=== PATIENT | female | born 1935 | race Caucasian/White ===

== ENCOUNTER 2022-01-17 20:39 | Emergency (ER) | payer MEDICARE | END 2022-01-17 21:16 | disposition home or self-care (01) | LOC: MADERS 20:39 | DX: S01.112A Laceration without foreign body of left eyelid and periocular area, initial encounter (principal); I10 Essential (primary) hypertension; E78.5 Hyperlipidemia, unspecified; J44.9 Chronic obstructive pulmonary disease, unspecified; M19.90 Unspecified osteoarthritis, unspecified site; G47.30 Sleep apnea, unspecified; W18.00XA Striking against unspecified object with subsequent fall, initial encounter; Z79.899 Other long term (current) drug therapy | CPT/HCPCS: 12011 ==

== ENCOUNTER 2023-08-11 07:19 | Emergency (ER) | payer MEDICARE ==
[2023-08-11 07:43] LABS: #Basophils 0.2 thou/uL (0.0-0.2); #Eosinphils 0.3 thou/uL (0.0-0.7); #Lymphocytes 2.3 thou/uL (1.20-3.40); #Monocytes 0.6 thou/uL (0.11-0.59); #Neutrophils 4.6 thou/uL (1.40-6.50); %Basophils 1.9 % (0.0-1.0); %Eosinophils 3.2 % (0.0-10.0); %Lymphocytes 29.2 % (21.0-51.0); %Monocytes 7.8 % (0.0-10.0); %Neutrophils 57.9 % (42.0-75.0); Hematocrit 45.7 % (36.0-47.0); Mean Corpuscular HGB CONC 32.8 g/dL (32.0-36.0); Mean Corpuscular Hemoglobin 29.9 pg (27.0-31.0); Mean Corpuscular Volume 91.1 fl (78.0-98.0); Mean Platelet Volume 6.9 fL (7.4-10.4); Platelet Count 260 10x3/uL (130-400); RBC Distribution Width 12.5 % (11.5-14.5); Red Blood Cell (RBC) Count 5.02 mill/uL (4.20-5.40)
[2023-08-11 07:44] LABS: INR-International Normal Ratio 0.9; PTT 25.3 sec (22.9-36.1); Prothrombin Time 11.9 sec (12.0-14.7)
[2023-08-11 07:55] LABS: ALT (SGPT) 20 U/L (8-55); AST (SGOT) 23 U/L (5-34); Albumin 4.4 g/dL (3.4-4.8); Alkaline Phosphatase 43 U/L (40-110); Anion Gap 16 mmol/L (10-20); BUN (Urea Nitrogen) 21 mg/dL (9.8-20.1); Bilirubin, Total 0.6 mg/dL (0.2-1.2); CK (CPK) 20 U/L (29-168); Calc. Creatinine Clearance 0 mL/min (70-130); Calcium 9.7 mg/dL (7.8-10.44); Carbon Dioxide 22 mmol/L (23-31); Chloride 106 mmol/L (98-107); Estimated GFR 67; Globulin 3.4 g/dL (2.4-3.5); Glucose 106 mg/dL (83-110); Potassium 4.2 mmol/L (3.5-5.1); Protein, Total 7.8 g/dL (5.8-8.1); Sodium 140 mmol/L (136-145)
[2023-08-11] MEDS ORDERED: Ondansetron PF 4 MG/2 ML Vial ONE (07:56)
[2023-08-11 08:03] LABS: Troponin I 0.019 ng/mL (< 0.028)
[2023-08-11 08:30] LABS: Bilirubin Negative (Negative); Blood, Urine Negative (Negative); Glucose, Urine (Dipstick) Negative (Negative); Ketone, Urine Negative (Negative); Leukocyte Negative (Negative); Nitrite Negative (Negative); Protein, Urine (Dipstick) Negative (Neg-Trace); Specific Gravity, Urine 1.015 (1.005-1.030); Urobilinogen 0.2 mg/dL (Less than 2); pH, Urine 8.5 (5.0-9.0)
[2023-08-11 08:32] LABS: Clarity Hazy (Clear)
[2023-08-11 08:40] LABS: CAUTI Indications for Culture Alt mental st,lethar; RBC/HPF 0-3 HPF (0-3); Squamous Epithelial 0-3 HPF (0-3); WBC/HPF 0-3 HPF (0-3)
[2023-08-11 08:41] LABS: Bacteria/HPF Rare-Few HPF (None Seen); Mucous/LPF None Seen LPF (<2+)
[2023-08-11 08:42] LABS: Urine Culture Reflex No No
[2023-08-11] MEDS ORDERED: Iopamidol 370 76% 100 ML VIAL ONE (09:00)
[2023-08-11] MEDS ORDERED: Aspirin 325 MG TAB ONE (09:47)
[2023-08-11] MEDS ORDERED: Amlodipine 5 MG TAB ONE (10:08)
[2023-08-11] MEDS ORDERED: Losartan 25 MG TAB ONE (11:57)
[2023-08-11] MEDS ORDERED: Ipratropium/Albuterol 3 ML NEB ONE (12:31)
[2023-08-11] MEDS ORDERED: traMADol HCl 50 MG TAB ONE (14:41)
== END 2023-08-11 17:19 | disposition short-term general hospital (02) ==
LOC: MADERS 07:19
DX: I63.9 Cerebral infarction, unspecified (principal); R47.01 Aphasia; I69.322 Dysarthria following cerebral infarction; I10 Essential (primary) hypertension; R29.704 NIHSS score 4; E78.5 Hyperlipidemia, unspecified; J44.9 Chronic obstructive pulmonary disease, unspecified; Z79.899 Other long term (current) drug therapy; Z79.82 Long term (current) use of aspirin
CPT/HCPCS: 0042T; 70450; 71045; 80053; 81001; 82550; 84484; 85025; 85610; 85730; 93005; 96374; J2405; J7620; Q9967

== ENCOUNTER 2023-08-20 11:16 | Emergency (ER) | payer MEDICARE ==
[2023-08-20] MEDS ORDERED: Bacitracin 1 PK ONE (12:54)
[2023-08-20] MEDS ORDERED: HYDROcodone/Acetaminophen 5/325 mg Tablet ONE (12:54)
[2023-08-20] MEDS ORDERED: Boostrix 0.5 ML (Tdap) VIAL (>/=7 yrs of age) ONE (13:21)
== END 2023-08-20 13:34 | disposition home or self-care (01) ==
LOC: MADERS 11:16
DX: S22.31XA Fracture of one rib, right side, initial encounter for closed fracture (principal); S41.111A Laceration without foreign body of right upper arm, initial encounter; S80.01XA Contusion of right knee, initial encounter; I10 Essential (primary) hypertension; E78.5 Hyperlipidemia, unspecified; J44.9 Chronic obstructive pulmonary disease, unspecified; W18.30XA Fall on same level, unspecified, initial encounter; Z23 Encounter for immunization; Z86.73 Personal history of transient ischemic attack (TIA), and cerebral infarction without residual deficits; Z79.82 Long term (current) use of aspirin; Z79.899 Other long term (current) drug therapy
CPT/HCPCS: 90471; 90715

== ENCOUNTER 2023-10-09 12:47 | Emergency (ER) | payer MEDICARE ==
[~2023-10-09 12:47] MED LIST: Iopamidol 370 76% 100 ML VIAL ONE; Sodium Chloride 0.9% 100 ML BAG ONE
[2023-10-09] MEDS ORDERED: Ipratropium/Albuterol 3 ML NEB ONE (13:21)
[2023-10-09] MEDS ORDERED: Furosemide 20 MG (2 mL) VIAL ONE (13:21)
[2023-10-09] MEDS ORDERED: Benzonatate 100 MG CAP ONE (13:21)
[2023-10-09] MEDS ORDERED: LevoFLOXacin 500 MG TAB ONE (13:22)
[2023-10-09] MEDS ORDERED: Furosemide 40 MG (4 mL) VIAL ONE (13:22)
[2023-10-09] MEDS ORDERED: methylPREDNISolone Sod Succ/PF 125 MG/2 ML VIAL ONE (13:22)
[2023-10-09] MEDS ORDERED: LevoFLOXacin 250 MG TAB ONE (13:22)
[2023-10-09 13:29] LABS: #Basophils 0.1 thou/uL (0.0-0.2); #Eosinphils 0.5 thou/uL (0.0-0.7); #Lymphocytes 1.6 thou/uL (1.20-3.40); #Monocytes 0.5 thou/uL (0.11-0.59); #Neutrophils 4.1 thou/uL (1.40-6.50); %Basophils 1.1 % (0.0-1.0); %Lymphocytes 23.2 % (21.0-51.0); %Monocytes 7.8 % (0.0-10.0); %Neutrophils 60.9 % (42.0-75.0); Hemoglobin 12.6 g/dL (12.0-16.0); Mean Corpuscular HGB CONC 30.6 g/dL (32.0-36.0); Mean Corpuscular Volume 91.5 fl (78.0-98.0); Mean Platelet Volume 6.1 fL (7.4-10.4); Platelet Count 291 10x3/uL (130-400); RBC Distribution Width 12.9 % (11.5-14.5); Red Blood Cell (RBC) Count 4.48 mill/uL (4.20-5.40); White Blood Cell (WBC) Count 6.7 10x3/uL (4.8-10.8)
[2023-10-09 13:32] LABS: Prothrombin Time 13.3 sec (12.0-14.7)
[2023-10-09 13:33] LABS: PTT 27.4 sec (22.9-36.1)
[2023-10-09 13:35] LABS: D-Dimer Test 0.96 mcg/mL (0.27-0.43)
[2023-10-09 13:41] LABS: Anion Gap 16 mmol/L (10-20); BUN (Urea Nitrogen) 17 mg/dL (9.8-20.1); Calc. Creatinine Clearance 0 mL/min (70-130); Calcium 9.2 mg/dL (7.8-10.44); Carbon Dioxide 24 mmol/L (23-31); Chloride 105 mmol/L (98-107); Estimated GFR 64; Glucose 106 mg/dL (83-110); Sodium 141 mmol/L (136-145)
[2023-10-09 13:44] LABS: Troponin I 0.021 ng/mL (< 0.028)
[2023-10-09 13:45] LABS: Base Excess-Venous 2.1 mmol/L (-2.0 to 3.0); Bicarbonate (HCO3v) 27.6 mmol/L (22.0-28.0); Calcium, Ionized 1.22 mmol/L (1.15-1.33); Chloride 112 mmol/L (98-107); Hemoglobin - Calc 14.4 g/dL (12.0-16.0); Sodium 146 mmol/L (138-145); vO2 Saturation-calc 70.8 % (60.0-85.0)
[2023-10-09] MEDS ORDERED: diphenhydrAMINE 50 MG/ML VIAL ONE (14:16)
[2023-10-09 16:06] LABS: Lactic Acid 1.2 mmol/L (0.5-2.2)
== END 2023-10-09 18:20 | disposition short-term general hospital (02) ==
LOC: MADERS 12:47
DX: I11.0 Hypertensive heart disease with heart failure (principal); I50.9 Heart failure, unspecified; J44.1 Chronic obstructive pulmonary disease with (acute) exacerbation; R79.89 Other specified abnormal findings of blood chemistry; J18.9 Pneumonia, unspecified organism; E78.5 Hyperlipidemia, unspecified; Z79.899 Other long term (current) drug therapy; Z79.82 Long term (current) use of aspirin
CPT/HCPCS: 36415; 71045; 71275; 80048; 82330; 82803; 83605; 83880; 84484; 85025; 85379; 85610; 85730; 87040; 93005; 96374; 96375; J1200; J1940; J2930; J3490; J7620; Q9967